=== PATIENT | male | born 1940 | race Caucasian/White ===

== ENCOUNTER 2017-05-28 18:12 | Inpatient (IN) | payer MEDICARE ==
[~2017-05-28] VITALS: Ht 175.3 cm; Wt 77.3 kg
[~2017-05-28 18:12] MED LIST: ALEVE ARTHRITI220 MG PO; ASPIRIN 81MG TA81 MG PO; FLOMAX 0.4MG C0.4 MG PO; OMEGA-31000 MG PO
[2017-05-28 18:18] VITALS: BP 117/61
[2017-05-28] MEDS ORDERED: METHOTREXATE 22.5 MG PO (18:27)
--- OUTSIDE RECORDS SUMMARY | 2017-05-28 18:27 | External Medical Summary Rpt ---
Author Author [facility] Organization [facility] Address Unknown Phone Unavailable Care Team Providers Care Customs Officer Name Role Phone MAGDI, (REF) PCP [phone] Encounter [facility] [id number] Date(s): 10/09/16 - 10/20/16 [facility] [address] [place] [address]- Discharge Disposition: OP Self Care or Home Attending Physician: KRIS NEVAREZ MD-SNU Admitting Physician: KRIS NEVAREZ MD-SNU Referring Physician: KRIS NEVAREZ MD-SNU Reason for Visit SPINAL STENOSIS, LUMBAR REGION Vital Signs Most recent 1 2 3 to oldest [Reference Range]: Temperature Oral Oral (10/19/16 Oral Source (10/20/16 3:00 AM) 10:00 PM) (10/19/16 7:00 PM) Temperature Fahrenheit Fahrenheit Fahrenheit Mode (10/20/16 3:00 AM) (10/19/16 10:00 (10/19/16 7:00 PM) PM) Temperature, 98.4 Deg F 97.8 Deg F 97.7 Deg F Fahrenheit (10/20/16 10:13 (10/20/16 6:45 AM) (10/20/16 3:00 AM) [96.8-99.7 AM) Deg F] Clinical 36.9 Deg C 36.6 Deg C 36.5 Deg C Temperature, (10/20/16 10:13 (10/20/16 6:45 AM) (10/20/16 3:00 AM) C AM) Pulse Method Pulse Oximetry (10/12/16 10:42 AM) Peripheral 59 bpm 73 bpm (10/19/16 68 bpm Pulse Rate *LOW* 10:00 PM) (10/19/16 7:00 PM) [60-100 bpm] (10/20/16 3:00 AM) Heart Rate 55 bpm 57 bpm 54 bpm Monitored *LOW*(10/20/16 *LOW* *LOW* [60-100 bpm] 10:13 AM) (10/20/16 6:45 AM) (10/19/16 4:51 PM) Respiratory 16 Breaths/Min 14 Breaths/Min 16 Breaths/Min Rate [14-20 (10/20/16 10:13 (10/20/16 6:45 AM) (10/19/16 10:41 Breaths/Min] AM) PM) Blood Arm, left upper Pressure (10/12/16 10:42 AM) Location Blood Non-Invasive BP Pressure Device (10/12/16 Source 10:42 AM) Blood Sitting Pressure (10/12/16 10:42 AM) Position Blood 97/44 mmHg 123/57 mmHg 113/47 mmHg Pressure (10/20/16 10:13 (10/20/16 6:45 AM) (10/20/16 3:00 AM) [90-140/60-9 AM) 0 mmHg] Mean 57 (10/20/16 10:13 72 59 Arterial AM) (10/20/16 6:45 AM) (10/20/16 3:00 AM) Pressure (MAP)-BMDI Oxygen 99 % 96 % 97 % Saturation (10/20/16 8:00 AM) (10/20/16 3:00 AM) (10/19/16 8:00 PM) [94-100 %] Oxygen Room air Room air Room air (10/19/16 Therapy Mode (10/20/16 8:00 AM) (10/19/16 8:00 PM) 12:00 PM) Oxygen Flow 2 Liter/Min 2 Liter/Min 2 Liter/Min Rate (10/19/16 11:30 (10/19/16 11:15 (10/19/16 11:10 AM) AM) AM) Height Measured (10/19/16 Measured Source 12:00 PM) (10/12/16 10:42 AM) Height Entry [place] (10/19/16 [place] Format 12:00 PM) (10/12/16 10:42 AM) Height/Lengt 69 Inch (10/19/16 69 Inch h [place] 12:00 PM) (10/12/16 10:42 AM) CLINICALHEIG 175.26 cm 175.26 cm HT (10/19/16 12:00 (10/12/16 10:42 AM) PM) Weight Standing scale Standing scale Source (10/19/16 12:00 (10/12/16 10:42 AM) PM) Weight Entry [place] (10/19/16 [place] Format 12:00 PM) (10/12/16 10:42 AM) Weight 169 lb (10/19/16 169 lb [place] lb 12:00 PM) (10/12/16 10:42 AM) CLINICALWEIG 76.82 kg (10/19/16 76.82 kg HT 12:00 PM) (10/12/16 10:42 AM) Body Surface 1.92 m2 (10/19/16 1.92 m2 Area (BSA) 12:00 PM) (10/12/16 10:42 AM) Body Mass 25 kg/m2 25 kg/m2 Index *HI*(10/19/16 *HI* [19.0-24.0 12:00 PM) (10/12/16 10:42 AM) kg/m2] [place] Body 70 kg (10/19/16 70 kg Weight 12:00 PM) (10/12/16 10:42 AM) Problem List Condition Effective Status Health Informant Dates Status Arthritis Active (rheumatoid) (Confirmed) Back Active pain(Confirm ed) CA - Cancer 11/22/15 Active of prostate (radiation seed implants)(Co nfirmed) Coronary Active artery disease (hx CABG x3)(Confirme d) Hard of Active hearing (mild)(Confi rmed) Immunosuppre Active ssion (RA)(Confirm ed) Numbness of Active fingers of both hands (tips of fingers)(Con firmed) Left leg Active numbness(Con firmed) Hernia, Active inguinal, right(Confir med) Spinal Active stenosis(Con firmed) Allergies, Adverse Reactions, Alerts No Known Allergies Medications acetaminophen-oxyCODONE (Percocet 5/325 oral tablet)1 Tab, Oral, Four Times A Day, As Needed, for pain, Refills: 0 aspirin 81 mg, Oral, Every Day, Refills: 0 docusate (docusate sodium 250 mg oral capsule)1 Cap, Oral, Two Times A Day, while taking percocet, to avoid constipation, Refills: 0 folic acid1 mg, Oral, Weekly, takes 5 pills weekly with Methotrexate, Refills: 0 oratnbaclrgg35 mg, Oral, Weekly, takes 10 pills of 2.5 mg weekly on Saturday, Refills: 0 naproxen (Aleve) 440 mg, Oral, Every Day, Refills: 0 tamsulosin (Flomax) 0.4 mg, Oral, Every Other Day, Refills: 0 Results GENERAL CHEMISTRY Most recent 1 to oldest [Reference Range]: Sodium Level 142 mmol/L [136-146 (10/12/16 10:50 AM) mmol/L] Potassium 4.1 mmol/L Level (10/12/16 10:50 AM) [3.5-5.1 mmol/L] Chloride 107 mmol/L Level (10/12/16 10:50 AM) [102-112 mmol/L] Carbon 26 mmol/L Dioxide (10/12/16 10:50 AM) Level [21-32 mmol/L] Anion Gap 13 [9-20] (10/12/16 10:50 AM) Glucose 87 mg/dL Level (10/12/16 10:50 AM) [74-106 mg/dL] Blood Urea 24 mg/dL Nitrogen *HI* [7-22 mg/dL] (10/12/16 10:50 AM) Creatinine 1.00 mg/dL Level (10/12/16 10:50 AM) [0.70-1.30 mg/dL] eGFR 89 mL/min/1.73m2 [>=60 (10/12/16 10:50 AM) mL/min/1.73m 2] eGFR 73 mL/min/1.73m2 NonAfrican (10/12/16 10:50 AM) [>=60 mL/min/1.73m 2] Bun/Creatini 24.0 ne *HI* [8.0-20.0] (10/12/16 10:50 AM) Calcium 8.7 mg/dL Level (10/12/16 10:50 AM) [8.5-10.1 mg/dL] HEMATOLOGY Most recent 1 to oldest [Reference Range]: WBC [4.2-9.1 4.8 K/uL K/uL] (10/12/16 10:50 AM) RBC 3.91 Million/uL [4.63-6.08 *LOW* Million/uL] (10/12/16 10:50 AM) Hgb 13.0 g/dL [13.7-17.5 *LOW* g/dL] (10/12/16 10:50 AM) Hct 36.8 % [40.1-51.0 *LOW* %] (10/12/16 10:50 AM) MCV 94.1 fL [79.0-94.8 (10/12/16 10:50 AM) fL] MCH 33.2 pg [25.6-32.2 *HI* pg] (10/12/16 10:50 AM) MCHC 35.3 Gram/dL [32.2-36.5 (10/12/16 10:50 AM) Gram/dL] Platelet 179 K/uL Count (10/12/16 10:50 AM) [163-369 K/uL] MPV 10.0 fL [9.4-12.4 (10/12/16 10:50 AM) fL] RDW 13.7 % [11.6-14.4 (10/12/16 10:50 AM) %] Slide Review No (10/12/16 10:50 AM) URINALYSIS Most recent 1 to oldest [Reference Range]: Urine Type U CleanCatch (10/12/16 11:43 AM) Urine Color Yellow *NA* (10/12/16 11:43 AM) Urine Clear Appearance (10/12/16 11:43 AM) Urine 1.006 Specific (10/12/16 11:43 AM) [place] [1.005-1.030 ] Urine pH 6.0 Dipstick (10/12/16 11:43 AM) [6.0-8.0] Urine Negative Leukocyte (10/12/16 11:43 AM) Esterase [Negative] Urine Negative Nitrite (10/12/16 11:43 AM) [Negative] Urine Negative Protein (10/12/16 11:43 AM) Dipstick [Negative] Urine Negative Glucose (10/12/16 11:43 AM) Dipstick [Negative] Urine Negative Ketones (10/12/16 11:43 AM) Dipstick [Negative] Urine 1.0 EU/dL Urobilinogen *ABN* Dipstick (10/12/16 11:43 AM) Urine Negative Bilirubin (10/12/16 11:43 AM) Dipstick [Negative] Urine Blood Negative Dipstick (10/12/16 11:43 AM) [Negative] Immunizations No data available for this section Procedures Procedure Date Related Body Site Diagnosis prostate cancer surgery 11/21 (radiation implant) CABG x3 2002 Social History Social History Response Type Smoking Status Never smoker; Smoking Frequency Within Last 30 Days None; Tobacco Use Within Last Twelve Months Snuff/Dip; Years of Tobacco Use 201 1goes through 2-3 tin/week Assessment and Plan Extracted from: Title: Neurosurgery Author: KRIS NEVAREZ Date: 10/20/16 Progress Note ADENIKE GONZALES SubjectiveDoing well this AM. Pain controlled.Vitals Signs (last 24 hrs) Last Charted Minimum MaximumTemp 97.8 (OCT 20 06:45)97.8 (OCT 20 06:45)97.6 (OCT 19 10:25)Mon HR 57 (OCT 20 06:45)52 (OCT 19 11:10)57 (OCT 19 10:25)Periph HR 59 (OCT 20 03:00)59 (OCT 20 03:00)73 (OCT 19 22:00)Resp Rate 14 (OCT 20 06:45)L 13 (OCT 19 10:30)20 (OCT 19 10:25)SBP 123 (OCT 20 06:45)113 (OCT 20 03:00)H 159 (OCT 19 16:51)DBP L 57 (OCT 20 06:45)L 47 (OCT 20 03:00)68 (OCT 19 10:25)MAP 72 (OCT 20 06:45)59 (OCT 20 03:00)98 (OCT 19 10:25)SpO2 99 (OCT 20 08:00)94 (OCT 19 11:10)100 (OCT 19 10:25)Physical ExamLE 11/09 motorLaboratory Values:No qualifying data available Radiology Results (Last 48 hours)[id number] -- 10/19/2016 06:32CR Fluoro in OR (10/19/2016 10:30) Result: FLUOROSCOPY IN THE OR, WITH IMAGESHISTORY: Back pain.FINDINGS: Fluoroscopy was provided by the radiology department for theclinical service. Fluoroscopic spot films were obtained.1 fluoroscopic image was obtained during lower lumbar spine surgery. Fluoroscopy exposure time: Less than one minutes.IMPRESSION: See above.Please see operative report for details. Images reviewed, interpreted, and dictated by Dr. Mukesh Acharya.Transcribed by Julito Arambula (Amarjit).I have personally viewed, interpreted and dictated the examination. Cece read and agree with the above final transcribed report.Assessments/p L345 LamiPlan- d/c home- f/u 2 weeks for jyoti Result: FLUOROSCOPY IN THE OR, WITH IMAGESHISTORY: Back pain.FINDINGS: Fluoroscopy was provided by the radiology department for theclinical service. Fluoroscopic spot films were obtained.1 fluo roscopic image was obtained during lower lumbar spine surgery. Fluoroscopy exposure time: Less than one minutes.IMPRESSION: See above.Please see operative report for details. Images reviewed , interpreted, and dictated by Dr. Mukesh Acharya.Transcribed by Julito Arambula (Amarjit).I have personally viewed, interpreted and dictated the examination. Cece read and agree with the above final transcribed report. Assessment s/p L345 Lami Plan - d/c home - f/u 2 weeks for jyoti Hospital Discharge Instructions Patient EducationFall Prevention and Home Safety, Tckq-tg-Ezyo Incision Care, Cdtl-kb-Alnl Laminectomy - Laminotomy - Discectomy, Care After Wound Infection, Jrfl-cc-Qjfj
--- OUTSIDE RECORDS SUMMARY | 2017-05-28 18:27 | External Medical Summary Rpt ---
Author Author [facility] Organization [facility] Address Unknown Phone Unavailable Care Team Providers Care Criminal Intelligence Analyst Name Role Phone MAGDI, (REF) PCP [phone] Encounter [facility] [address] [id number] Date(s): 10/09/16 - 10/20/16 [facility] [address] [place] [id number]- Discharge Disposition: OP Self Care or Home [...] 12:00 PM) (10/12/16 10:42 AM) Height Entry [place] (10/19/16 [place] Format 12:00 PM) (10/12/16 10:42 AM) Height/Lengt 69 Inch (10/19/16 69 Inch h [place] 12:00 PM) (10/12/16 10:42 AM) CLINICALHEIG 175.26 cm 175.26 cm HT (10/19/16 12:00 (10/12/16 10:42 AM) PM) Weight Standing scale Standing scale Source (10/19/16 12:00 (10/12/16 10:42 AM) PM) Weight Entry [place] (10/19/16 [place] Format 12:00 PM) (10/12/16 10:42 AM) Weight 169 lb (10/19/16 169 lb [place] lb 12:00 PM) (10/12/16 10:42 AM) CLINICALWEIG 76.82 kg (10/19/16 76.82 kg HT 12:00 PM) (10/12/16 10:42 AM) Body Surface 1.92 m2 (10/19/16 1.92 m2 Area (BSA) 12:00 PM) (10/12/16 10:42 AM) Body Mass 25 kg/m2 25 kg/m2 Index *HI*(10/19/16 *HI* [19.0-24.0 12:00 PM) (10/12/16 10:42 AM) kg/m2] [place] Body 70 kg (10/19/16 70 kg Weight [...] 5 pills weekly with Methotrexate, Refills: 0 [id number] mg, Oral, Weekly, takes 10 pills of [...] AM) Urine 1.006 Specific (10/12/16 11:43 AM) [place] [1.005-1.030 ] Urine pH 6.0 Dipstick (10/12/16 [...] qualifying data available Radiology Results (Last 48 hours)[id number] -- 10/19/2016 06:32CR Fluoro in OR (10/19/2016 [...] Instructions Patient EducationFall Prevention and Home Safety, Qmka-ys-Hmjd Incision Care, Pyjk-bd-Cgre Laminectomy - Laminotomy - Discectomy, Care After Wound Infection, Lowc-xc-Eccq
--- OUTSIDE RECORDS SUMMARY | 2017-05-28 18:28 | External Medical Summary Rpt | CCD ---
Author Author , ILEANA TEJEDA Address Unknown Phone [email or web address] Medical Immunization Name Date Rout CVX Reac Dose Comm Prov Is Faci e tion ent ider Refu lity Give sed n Infl 09- 135 999 Hist D203 No D203 uenz 3-20 oric 45 45 a, 16 al High Info rmat Dose ion - Sour ce Unsp ecif ied
--- OUTSIDE RECORDS SUMMARY | 2017-05-28 18:28 | External Medical Summary Rpt ---
Author Author [employer] [facility]zana, [employer] Organization [employer] Address Unknown Phone Unavailable
--- OUTSIDE RECORDS SUMMARY | 2017-05-28 18:28 | External Medical Summary Rpt | CCD ---
Author Author , ILEANA TEJEDA Address Unknown Phone [email or web address] Immunization Name Date Rout CVX Reac Dose Comm Prov Is Faci e tion ent ider Refu lity Give sed n Infl 09- 135 999 Hist D203 No D203 uenz 3-20 oric 45 45 a, 16 al High Info rmat Dose ion - Sour ce Unsp ecif ied
--- OUTSIDE RECORDS SUMMARY | 2017-05-28 18:28 | External Medical Summary Rpt ---
Author Author [facility] Organization [facility] Address Unknown Phone Unavailable Care Team Providers Care Incident Response Analyst Name Role Phone MAGDI, (REF) PCP [phone] Encounter [facility] Date(s): 11/05/16 - 11/08/16 [facility] [address] [place] [address]- Discharge Disposition: OP Self Care or Home Attending Physician: DARREL KEYS MD-SUR Admitting Physician: DARREL KEYS MD-SUR Referring Physician: DARREL KEYS MD-SUR Reason for Visit UNIL INGUINAL HERNIA, W/O OBST OR GANGR, NOT SPCF RECUR Vital Signs Most recent 1 2 3 4 to oldest [Reference Range]: Temperature Oral (11/08/16 Oral (11/07/16 Oral (11/07/16 Source 2:00 AM) 11:45 PM) 9:38 PM) Temperature Fahrenheit Fahrenheit Fahrenheit Mode (11/08/16 2:00 (11/07/16 (11/07/16 9:38 AM) 11:45 PM) PM) Temperature, 98.2 Deg F 98.1 Deg F 98.2 Deg F Fahrenheit (11/08/16 2:45 (11/07/16 (11/07/16 9:38 [96.8-99.7 AM) 11:45 PM) PM) Deg F] Clinical 36.8 Deg C 36.7 Deg C 36.8 Deg C Temperature, (11/08/16 2:45 (11/07/16 (11/07/16 9:38 C AM) 11:45 PM) PM) Pulse Method Pulse Pulse Oximetry Oximetry (11/07/16 1:39 (11/06/16 PM) 11:44 AM) Pulse Rhythm Regular (11/07/16 1:39 PM) Heart Rate, 57 bpm 54 bpm Apical *LOW*(11/07/16 *LOW*(11/07/16 [60-100 bpm] 11:00 PM) 9:38 PM) Peripheral 60 bpm 58 bpm Pulse Rate (11/07/16 1:39 *LOW*(11/06/16 [60-100 bpm] PM) 11:44 AM) Heart Rate 65 bpm 57 bpm 54 bpm Monitored (11/08/16 2:45 *LOW*(11/07/16 *LOW*(11/07/16 [60-100 bpm] AM) 11:00 PM) 9:38 PM) Respiratory 16 16 16 Rate [14-20 Breaths/Min Breaths/Min Breaths/Min Breaths/Min] (11/08/16 2:45 (11/07/16 (11/07/16 9:38 AM) 11:00 PM) PM) Blood Arm, right Arm, left Pressure upper upper Location (11/07/16 1:39 (11/06/16 PM) 11:44 AM) Blood Non-Invasive Non-Invasive Pressure BP Device BP Device Source (11/07/16 1:39 (11/06/16 PM) 11:44 AM) Blood Supine Sitting Pressure (11/07/16 1:39 (11/06/16 Position PM) 11:44 AM) Blood 123/58 mmHg 149/85 mmHg 149/66 mmHg Pressure (11/08/16 2:45 *HI*(11/07/16 *HI*(11/07/16 [90-140/60-9 AM) 11:45 PM) 9:38 PM) 0 mmHg] Mean 81 (11/08/16 102 (11/07/16 79 (11/07/16 Arterial 2:45 AM) 11:45 PM) 9:38 PM) Pressure (MAP)-BMDI Oxygen 96 % (11/08/16 96 % (11/07/16 96 % (11/07/16 Saturation 2:45 AM) 11:00 PM) 9:51 PM) [94-100 %] Oxygen Room air Room air Room air Therapy Mode (11/08/16 9:16 (11/08/16 8:00 (11/07/16 AM) AM) 11:00 PM) Oxygen Flow 8 Liter/Min 8 Liter/Min 3 Liter/Min 3 Liter/Min Rate (11/07/16 3:44 (11/07/16 3:44 (11/07/16 1:39 (11/07/16 1:39 PM) PM) PM) PM) Height Measured Measured Source (11/07/16 7:07 (11/06/16 AM) 11:44 AM) Height Entry [place] Format (11/07/16 7:07 (11/06/16 AM) 11:44 AM) Height/Lengt 67 Inch 67 Inch h [place] (11/07/16 7:07 (11/06/16 AM) 11:44 AM) CLINICALHEIG 170.18 cm 170.18 cm HT (11/07/16 7:07 (11/06/16 AM) 11:44 AM) Weight Standing Standing Source scale scale (11/07/16 7:07 (11/06/16 AM) 11:44 AM) Weight Entry [place] Format (11/07/16 7:07 (11/06/16 AM) 11:44 AM) Weight 164 lb 164 lb [place] lb (11/07/16 7:07 (11/06/16 AM) 11:44 AM) CLINICALWEIG 74.55 kg 74.55 kg HT (11/07/16 7:07 (11/06/16 AM) 11:44 AM) Body Surface 1.86 m2 1.86 m2 Area (BSA) (11/07/16 7:07 (11/06/16 AM) 11:44 AM) Body Mass 25.7 kg/m2 25.7 kg/m2 Index *HI*(11/07/16 *HI*(11/06/16 [19.0-24.0 7:07 AM) 11:44 AM) kg/m2] [place] Body 65 kg 65 kg Weight (11/07/16 7:07 (11/06/16 AM) 11:44 AM) Problem List Condition Effective Status Health Informant Dates Status Arthritis Active (rheumatoid) (Confirmed) Back pain Active (better since laminectomy on 10/19/2016)(C onfirmed) CA - Cancer 11/22/15 Active of prostate (radiation seed implants)(Co nfirmed) Coronary Active artery disease (hx CABG x3)(Confirme d) Hard of Active hearing (mild)(Confi rmed) Immunosuppre Active ssion (RA)(Confirm ed) Numbness of Active fingers of both hands (tips of fingers)(Con firmed) Left leg Active numbness(Con firmed) Leg Active weakness, bilateral (occasional, since back surgery)(Con firmed) Hernia, Active inguinal, right(Confir med) Spinal Resolved stenosis (resolved with surgery)(Con firmed) Allergies, Adverse Reactions, Alerts No Known Allergies Medications acetaminophen-hydrocodone ([place] 7.5 mg-325 mg oral tablet)1 Tab, Oral, Every 4 Hours, Not to exceed 3,000 mg Acetaminophen per day from ALL Sources, As Needed, as needed for pain, Refills: 0 aspirin 81 mg, Oral, Every Day, Refills: 0 folic acid1 mg, Oral, Weekly, takes 5 pills weekly with Methotrexate, Refills: 0 pvrrdjssfufx50 mg, Oral, Weekly, takes 10 pills of 2.5 mg weekly on Saturday, Refills: 0 naproxen (Aleve) 440 mg, Oral, Every Day, Refills: 0 tamsulosin (Flomax)0.4 mg, Oral, Every Other Day, takes at bedtime, Refills: 0 Results GENERAL CHEMISTRY Most recent 1 2 3 to oldest [Reference Range]: Sodium Level 137 mmol/L 136 mmol/L [136-146 (11/08/16 5:44 AM) (11/07/16 4:51 PM) mmol/L] Potassium 4.2 mmol/L 4.3 mmol/L Level (11/08/16 5:44 AM) (11/07/16 4:51 PM) [3.5-5.1 mmol/L] Chloride 102 mmol/L 102 mmol/L Level (11/08/16 5:44 AM) (11/07/16 4:51 PM) [102-112 mmol/L] Carbon 28 mmol/L 29 mmol/L Dioxide (11/08/16 5:44 AM) (11/07/16 4:51 PM) Level [21-32 mmol/L] Anion Gap 11 9 [9-20] (11/08/16 5:44 AM) (11/07/16 4:51 PM) Glucose 109 mg/dL 97 mg/dL Level *HI* (11/07/16 4:51 PM) [74-106 (11/08/16 5:44 AM) mg/dL] Blood Urea 13 mg/dL 16 mg/dL Nitrogen (5/4/17 5:44 AM) (11/07/16 4:51 PM) [7-22 mg/dL] Creatinine 0.90 mg/dL 0.90 mg/dL Level (11/08/16 5:44 AM) (11/07/16 4:51 PM) [0.70-1.30 mg/dL] eGFR 100 mL/min/1.73m2 100 mL/min/1.73m2 [>=60 (11/08/16 5:44 AM) (11/07/16 4:51 PM) mL/min/1.73m 2] eGFR 82 mL/min/1.73m2 82 mL/min/1.73m2 NonAfrican (11/08/16 5:44 AM) (11/07/16 4:51 PM) [>=60 mL/min/1.73m 2] Bun/Creatini 14.4 17.8 ne (11/08/16 5:44 AM) (11/07/16 4:51 PM) [8.0-20.0] Calcium 8.8 mg/dL 8.6 mg/dL Level (11/08/16 5:44 AM) (11/07/16 4:51 PM) [8.5-10.1 mg/dL] HEMATOLOGY Most recent 1 2 3 to oldest [Reference Range]: Hgb 11.5 g/dL 11.9 g/dL 11.2 g/dL [13.7-17.5 *LOW* *LOW*(11/07/16 *LOW* g/dL] (11/08/16 5:44 AM) 11:57 PM) (11/07/16 4:51 PM) Hct 33.2 % 35.5 % 33.5 % [40.1-51.0 *LOW* *LOW*(11/07/16 *LOW* %] (11/08/16 5:44 AM) 11:57 PM) (11/07/16 4:51 PM) Immunizations No data available for this section Procedures Procedure Date Related Body Site Diagnosis L3-5 laminectomy 10/19 Social History Social History Response Type Smoking Status Never smoker; Smoking Frequency Within Last 30 Days None; Tobacco Use Within Last Twelve Months Snuff/Dip; Years of Tobacco Use 201 1goes through 2-3 tin/week Assessment and Plan No data available for this section Hospital Discharge Instructions No data available for this section
--- OUTSIDE RECORDS SUMMARY | 2017-05-28 18:28 | External Medical Summary Rpt | CCD ---
Author Author [facility] Organization [facility] Address Unknown Phone Unavailable Purpose Continuity of Care Document - through 2016
--- OUTSIDE RECORDS SUMMARY | 2017-05-28 18:28 | External Medical Summary Rpt | CCD ---
Author Author [employer] Address Unknown Phone [email or web address] Purpose Continuity of Care Document - through 2016
--- OUTSIDE RECORDS SUMMARY | 2017-05-28 18:28 | External Medical Summary Rpt | CCD ---
Author Author [employer] Address Unknown Phone Purpose Continuity of Care Document - through 2016
--- OUTSIDE RECORDS SUMMARY | 2017-05-28 18:28 | External Medical Summary Rpt ---
Author Author [facility] Organization [facility] Address Unknown Phone Unavailable Care Team Providers Care Road Gang Supervisor Name Role Phone MAGDI, (REF) PCP [phone] Encounter [facility] Date(s): 11/05/16 - 11/08/16 [facility] [address] [place] [address]- Discharge Disposition: OP Self Care or Home [...] 7:07 (11/06/16 AM) 11:44 AM) Height Entry [place] Format (11/07/16 7:07 (11/06/16 AM) 11:44 AM) Height/Lengt 67 Inch 67 Inch h [place] (11/07/16 7:07 (11/06/16 AM) 11:44 AM) CLINICALHEIG 170.18 cm 170.18 cm HT (11/07/16 7:07 (11/06/16 AM) 11:44 AM) Weight Standing Standing Source scale scale (11/07/16 7:07 (11/06/16 AM) 11:44 AM) Weight Entry [place] Format (11/07/16 7:07 (11/06/16 AM) 11:44 AM) Weight 164 lb 164 lb [place] lb (11/07/16 7:07 (11/06/16 AM) 11:44 AM) CLINICALWEIG 74.55 kg 74.55 kg HT (11/07/16 7:07 (11/06/16 AM) 11:44 AM) Body Surface 1.86 m2 1.86 m2 Area (BSA) (11/07/16 7:07 (11/06/16 AM) 11:44 AM) Body Mass 25.7 kg/m2 25.7 kg/m2 Index *HI*(11/07/16 *HI*(11/06/16 [19.0-24.0 7:07 AM) 11:44 AM) kg/m2] [place] Body 65 kg 65 kg Weight (11/07/16 [...] Reactions, Alerts No Known Allergies Medications acetaminophen-hydrocodone ([place] 7.5 mg-325 mg oral tablet)1 Tab, Oral, Every 4 Hours, Not to exceed 3,000 mg Acetaminophen per day from ALL Sources, As Needed, as needed for pain, Refills: 0 aspirin 81 mg, Oral, Every Day, Refills: 0 folic acid1 mg, Oral, Weekly, takes 5 pills weekly with Methotrexate, Refills: 0 [id number] mg, Oral, Weekly, takes 10 pills of [...]
[2017-05-28 18:35] LABS: HEMOGLOBIN 13.7 g/dL (14.1-18.0); LYMPH # 0.5 K/mm3 (0.7-4.5); LYMPH % 3.8 % (10-50)
--- NOTE | 2017-05-28 18:43 | Emergency Room Report ---
History of Present Illness Time Seen by 1819 Presenting Problem in Triage Pt arrived:Walked Presenting Problem:RIGHT LOWER SIDE AND BACK PAIN SINCE YESTERDAY AT NOON.HURTS WORSE WITH INSPIRATION. 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 N Clinical Suspician of Infection? N Mental Status: 1 - Regular (Normal Baseline) Sepsis Risk:Low Sepsis Risk Have you (or family members/close friends) recently traveled outside the [place]? N If Yes, where/when: Have you had exposure to infectious disease within the past month? TB? Other? Specify: Positional right sided rib pain since yesterday. No SOB, no n/v, no syncope, no palpitations, no calf pain, no recent travel, no fever, no cough, no flu sx, no rash. Not taking anything for pain. Has hx CABG remotely. ALLERGIES Coded Allergies: No Known Allergies (07/21/15) Home Medications Reported Medications Methotrexate 2.5 MG PO WEEKLY #40 ASPIRIN (Aspirin) 81 MG PO DAILY Naproxen Sodium (Aleve Arthritis) 220 MG PO DAILY TAMSULOSIN HCL (Flomax 0.4MG) 0.4 MG PO QHS (Wild ROACH, Opal Dumont) History Medical History General CAD? Yes Angina: No [place]: No Hypertension? No Hyperlipidemia? No CHF? No DVT? No PE? No COPD? No Asthma? No Anemia? No GERD? No Gastric ulcers? No GI Bleed? No Hernia? No Thyroid Problems? No Hypothyroidism? No CVA? No Seizures? No Diabetes? No Renal Insuffiency? No End Stage Renal Disease? No UTI? No Stones? No BPH? No GB Disease: No Nephritic Syndrome? No Asplenia? No Hepatitis? No Sickle Cell Disease? No Arthritis? Yes Migraines? No Cataracts? No Glaucoma? No MRSA? No HIV? No TB? No Anxiety? No Depression? No Cancer? Yes Site: PROSTATE More? No Immunization Hx DT/Tetanus 1-4 Years Ago Surgical Hx Previous Surgery?Y OPEN HEART SURGERY BACK SURGERY Family History Family Hx Cancer Yes Social History Smoking Hx Smoker: Never Smoker Tobacco: No Alcohol Alcohol: No (Wild ROACH, Opal Dumont) Review of Systems All Other Systems Reviewed and Negative Musculoskeletal see HPI (Wild ROACH, Opal Dumont) Physical Exam Vital Signs Vital Signs Date Time Temp Pulse Resp B/P Pulse O2 O2 Flow FiO2 Ox Delivery Rate 05/28 1818 98.6 75 20 117/61 95 General Appearance normal appearance, WD/WN, no apparent distress Eye Exam - bilateral eye normal exam, bilateral eye PERRL, bilateral eye EOMI Neck normal inspection, non-tender, supple, full range of motion Respiratory Status Yes: trachea midline, chest symmetrical, tender on palpation. No: respiratory distress, non tender chest, use of accessory muscles, pain on inspiration, pain on expiration, productive cough, non productive cough. Lung Sounds bilateral: normal breath sounds, lungs clear. Cardiovascular normal exam, regular rate/rhythm, no peripheral edema, no gallop, no JVD, no murmur, no rub, normal peripheral pulses Gastrointestinal normal bowel sounds, normal exam, non tender, soft, no organomegaly, no pulsatile mass, no guarding, no rebound Back normal inspection, no CVA tenderness, no vertebral tenderness, bowel/ bladder continent, strt leg raising(L)-NML, strt leg raising(R)-NML, mild tenderness to palpation right ribs, reproduces pain; no visible rash no shingles. Extremities non-tender, normal range of motion, normal inspection, normal capillary refill, no calf tenderness, no pedal edema Strength 5 Upper Ext (L), 5 Upper Ext (R), 5 Lower Ext (L), 5 Lower Ext (R) Neurologic alert, normal exam, no motor/sensory deficits, oriented x 3 Glascow Coma Scale Glascow Coma Scale Response Value EYE response: 4 Spontaneously 4 MOTOR response: 6 OBEYS 6 VERBAL response: 5 Oriented & Converses 5 Total 15 Skin intact, normal color, warm/dry, no rash cons.w/shingles (Wild ROACH, Opal Dumont) Medical Decision Making LABS/Meds/Orders Pt receiving controlled substance in ED? No Results/Orders Laboratory Tests 05/28/171914: Urine Color ORANGE, Urine Appearance CLEAR, Urine pH 6.0, Ur Specific [place] 1.025, Urine Protein 1+ H, Urine Ketones 1+ H, Urine Blood TRACE-INTACT, Urine Nitrate POSITIVE H, Urine Bilirubin 1+ H, Urine Urobilinogen 1.0, Ur Leukocyte Esterase NEGATIVE, Urine RBC NONE, Urine WBC OCC, Ur Squamous Epith Cells 3-5, Urine Bacteria TRACE, Urine Mucus 4+, Urine Glucose NEGATIVE 05/28/171820: Lipase 78 05/28/171820: Sodium 135 L, Potassium 3.8, Chloride 99, Carbon Dioxide 27, BUN 18, Creatinine 0.9, Estimated Creat Clear 74, Estimated GFR (MDRD) 82, Glucose 104, Calcium 8.9 , Total Bilirubin 2.0 H, AST 22, ALT 30, Alkaline Phosphatase 89, Creatine Kinase 121, CK-MB (CK-2) Rel Index 1.8, CK and CKMB Interp 2.2, Troponin I 0.04, Total Protein 6.5, Albumin 3.5, Globulin 3.0, Albumin/Globulin Ratio 1.2, WBC 13.4 H, RBC 3.97 L, Hgb 13.7 L, Hct 40.1 L, MCV 101.1 H, RDW 14.5, Plt Count 168, MPV 7.7, Gran % 92.2 H, Gran # 12.4 H, Total Counted 100, Lymphocytes % 3.8 L, Monocytes % 3.6, Eosinophils % 0.3, Basophils % 0.1, Neutrophils 88 H, Band Neutrophils 2, Lymphocytes (Manual) 2 L, Lymphocytes # 0.5 L, Monocytes (Manual) 8, Monocytes # 0.5, Eosinophils # 0.0, Basophils # 0.0, Platelet Estimate NORMAL, PUBS MCHC 34.1, MCH 34.5 H Current Medication Orders Sig/Ildefonso Start time Last Medication Dose Route Stop Time Status Admin Iopamidol 75 ML ONCE ONE 05/28 2000 UNV 05/28 IV 05/28 Sodium Chloride 10 ML ONCE ONE 05/28 2000 UNV 05/28 IV 05/28 Sodium Chloride 10 ML PRN PRN 05/28 183 AC IV 05/29 1828 Orders Procedure Date/time Status DIET-NOTHING BY MOUTH 05/[address] ABD & PELVIS W/ CONTRAST 05/[address] ABD/PELVIS REQ 05/28 1921 Complete CULTURE, URINE 05/28 1915 Active URINALYSIS/COMPLETE 05/28 1856 Complete LIPASE 05/28 1856 Complete ELECTROCARDIOGRAM REQUEST 05/28 1829 Active IV SALINE LOCK 05/28 1829 Active CBC WITH AUTO DIFF 05/28 1829 Complete CARDIAC ENZYMES 05/28 1829 Complete CHEM 12 PROFILE 05/28 1829 Complete DIFFERENTIAL-WBC 05/28 1821 Complete 12 LEAD EKG-ELOISE (INITIAL) 05/28 UNK Active CM/EKG CM/EKG EKG rate, NSR, rhythm, no ectopy, normal QRS, normal CA, normal EKG (NSR Q waves inferiorly noprior) XRAY/CT/US XRAY/CT/US XRAY chest XR interpretation by reviewed by me Xray Results normal/NAD, no infiltrates, normal lung inflation divya, borderline CM, slightly elevated R hemidiaphragm, sternotomy wires, neg acute (Opal Rome MD) XRAY/CT/US XRAY/CT/US 2 CT abdomen, pelvis CT interpretation by discussed w/radiologist Time results known: 2031 CT Results abnormal (acute appendicitis) (Young Carter MD) Departure Departure Time of Disposition 1999 Disposition Still a Patient Condition STABLE ED Critical Care Critical Care No (Opal Rome MD) Departure Clinical Impression Primary Impression: Appendicitis, acute Qualifiers: Acute appendicitis type: unspecified acute appendicitis type Qualified Code: K35.80 - Unspecified acute appendicitis Referrals Sahil ROACH,A.C. (Family) discussed with dr stone (Young Carter MD) at 195 at 2032
[2017-05-28 19:15] LABS: NEUTROPHILS 88 % (42-76)
[2017-05-28 19:18] LABS: URINE BLOOD TRACE-INTACT (NEG)
[2017-05-28 19:20] LABS: URINE BILIRUBIN - DIPSTICK 1+ (NEG)
--- NOTE | 2017-05-28 19:58 | RADIOLOGY REPORT PS360 ---
CHEST(2 VIEWS-NOT PORTABLE) HISTORY: RIGHT RIB PAIN, CARDIAC HX ORDERING PHYSICIAN: Opal Rome MD PATIENT AGE: 76 years COMPARISON: None available FINDINGS: There is mild cardiomegaly without failure. There has been a prior median sternotomy. No lobar consolidation or collapse. 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 IMPRESSION: 1. Prior median sternotomy with mild cardiomegaly. 2. Severe bilateral subacromial stenosis consistent with rotator cuff tear
--- OUTSIDE RECORDS SUMMARY | 2017-05-28 21:54 | External Medical Summary Rpt | CCD ---
Author Author , ILEANA TEJEDA Address Unknown Phone [email or web address] Immunization Name Date Rout CVX Reac Dose Comm Prov Is Faci e tion ent ider Refu lity Give sed n Infl 09- 135 999 Hist D203 No D203 uenz 3-20 oric 45 45 a, 16 al High Info rmat Dose ion - Sour ce Unsp ecif ied
--- OUTSIDE RECORDS SUMMARY | 2017-05-28 21:54 | External Medical Summary Rpt | CCD ---
Author Author , ILEANA TEEJDA Address Unknown Phone [email or web address] Immunization Name Date Rout CVX Reac Dose Comm Prov Is Faci e tion ent ider Refu lity Give sed n Infl 09- 135 999 Hist D203 No D203 uenz 3-20 oric 45 45 a, 16 al High Info rmat Dose ion - Sour ce Unsp ecif ied
--- OUTSIDE RECORDS SUMMARY | 2017-05-28 21:54 | External Medical Summary Rpt | CCD ---
Author Author , ILEANA Organization ILEANA Address Unknown Phone .[employer] Purpose Continuity of Care Document - 05-28-2017 through 2016 Results Labs Lab Lab Date Result Refere Interp Status Commen Order Detail nces retati t Range on Urinalysis with microscopy (05-28-2017 19:15) Urine CLEAR CLEAR complet appeara 017 CLEAR L ed nce 19:15 determi nation Bacteri TRACE O complet a 017 TRACE L ed detecti 19:15 on in urine sedimen t by Urine 1+ 1+ L NEG complet total 017 ed bilirub 19:15 in detecti on by test Comment: ICTOTEST = NEGATIVE Urine TRACE-I NEG complet blood 017 NTACT ed detecti 19:15 TRACE-I on NTACT L Urine ORANGE YELLOW complet color 017 ORANGE ed 19:15 L Glucose = NEG complet ur 017 NEGATIV ed test 19:15 E strip Urine 1+ 1+ L NEG complet ketones 017 mg/dL ed 19:15 detecti on by automat ed sammie Mucus NEGATIV NEG complet detecti 017 E ed on in 19:15 NEGATIV urine E L sedimen t by lig Mucus 4+ 4+ L NONE complet detecti 017 ed on in 19:15 urine sedimen t by lig Urine POSITIV NEG complet nitrite 017 E ed 19:15 POSITIV detecti E L on by test strip Urine = 6.0 5.0-8.5 complet pH 017 ed 19:15 Urine 1 + NEG complet protein 017 mg/dL ed 19:15 measure ment by automat ed t Erythro NONE 0 complet cytes 017 NONE L ed detecti 19:15 rbc/hpf on in urine sedimen t Urine 11-21-2 = 1.025 1.005-1 complet specifi 017 .030 ed c 19:15 gravity measure ment [place] 05-28-2 3-5 3-5 OCC complet s 017 L ed epithel 19:15 #/hpf ial cells detecti on in u Urine 2 1.0 1.0 NEG complet urobili 017 L ed nogen 19:15 E.U./dL detecti on by test str Urine = OCC O complet leukocy 017 wbc/hpf ed sammie 19:15 count (number /volume ) Urinalysis dipstick W Reflex Microscopic panel in Urine (05-28-2017 19:15) Bacteri TRACE O complet a 017 ed [Presen 19:15 ce] in Urine sedimen t by Light microsc opy Mucus 4+ NONE complet [Presen 017 ed ce] in 19:15 Urine sedimen t by Light microsc opy Erythro 05-28-2 NONE 0 complet cytes 017 ed [Presen 19:15 ce] in Urine sedimen t by Light microsc opy Epithel 05-28-2 3-5 OCC complet ial 017 ed cells.s 19:15 quamous [Presen ce] in Urine sedimen t by Microsc opy high power field Urinalysis dipstick W Reflex Microscopic panel in Urine (05-28-2017 19:15) Appeara CLEAR CLEAR complet nce of 017 ed Urine 19:15 Bilirub 2 1+ NEG Abnorma complet in 017 l ed [Presen 19:15 ce] in Urine by Test strip Erythro TRACE-I NEG complet cytes 017 NTACT ed [Presen 19:15 ce] in Urine Color ORANGE YELLOW complet of 017 ed Urine 19:15 Ketones 05-28-2 1+ NEG Abnorma complet 017 l ed [Presen 19:15 ce] in Urine by Automat ed test strip Mucus NEGATIV NEG complet [Presen 017 E ed ce] in 19:15 Urine sedimen t by Light microsc opy Nitrite 2 POSITIV NEG Abnorma complet 017 E l ed [Presen 19:15 ce] in Urine by Test strip Urobili 1.0 NEG complet nogen 017 ed [Presen 19:15 ce] in Urine by Test strip Cardiac enzymes (05-28-2017 18:21) Serum 05-28-2 = 1.8 0-4.0 complet or 017 U/L ed plasma 18:21 creatin e kinase MB (CK-M Serum = 2.2 0.0-3.6 complet or 017 ng/mL ed plasma 18:21 creatin e kinase MB measu Serum = 121 39-308 complet or 017 U/L ed plasma 18:21 creatin e kinase measure m Serum = 0.04 0.00-0. complet or 017 ng/mL 06 ed plasma 18:21 troponi n i.cardi ac measu Comprehensive metabolic panel (05-28-2017 18:21) Serum = 1.2 1.1-1.8 complet or 017 ed plasma 18:21 albumin /globul in mass ra Serum = 3.5 3.4-5.0 complet or 017 gm/dL ed plasma 18:21 albumin measure ment (mas Serum = 89 46-116 complet or 017 U/L ed plasma 18:21 alkalin e phospha tase roxanna Serum = 2.0 0.2-1.0 complet or 017 mg/dL ed plasma 18:21 total bilirub in measure m Serum = 0.9 0.70-1. complet or 017 mg/dL 30 ed plasma 18:21 creatin ine measure ment ( Serum = 18 7-18 complet or 017 mg/dL ed plasma 18:21 urea nitroge n measure men Serum = 8.9 8.5-10. complet or 017 mg/dL 1 ed plasma 18:21 calcium measure ment (mas Serum = 99 98-107 complet or 017 mmoL/L ed plasma 18:21 chlorid e measure ment (mo Carbon = 27 21.0-32 complet dioxide 017 mmoL/L .0 ed 18:21 measure ment Estimat = 74 50-200 complet ion of 017 ML/MIN ed creatin 18:21 ine renal clearan ce Estimat = 82 >60 complet ed 017 ML/MIN ed glomeru 18:21 lar filtrat ion rate (GF Comment: REFERENCE RANGE: >60 ML/MIN/1.73 SQUARE METERS Comment: If this patient is -[place], then multiply the Comment: result by 1.210. Serum = 3.0 1.3-3.2 complet globuli 017 gm/dL ed n 18:21 measure ment (mass/v olume) Serum = 104 74-106 complet or 017 mg/dL ed plasma 18:21 glucose measure ment (mas Serum = 3.8 3.5-5.1 complet potassi 017 mmoL/L ed um 18:21 measure ment Serum = 135 136-145 complet sodium 017 mmoL/L ed measure 18:21 ment Serum = 22 15-37 complet or 017 U/L ed plasma 18:21 asparta te aminotr ansfera ALT = 30 12-78 complet (SGPT) 017 U/L ed ser/lidia 18:21 s Protein = 6.5 6.4-8.2 complet total 017 gm/dL ed ser/lidia 18:21 s Lipase measurement (05-28-2017 18:21) Lipase = 78 73-393 complet measure 017 U/L ed ment 18:21 CBC w auto diff (05-28-2017 18:21) Automat = 0.0 0-0.2 complet ed 017 K/MM3 ed blood 18:21 basophi l count (count/ vo Baso % = 0.1 % 0.1-2.0 complet 017 ed 18:21 Automat = 0.0 0.0-0.4 complet ed 017 K/mm3 ed blood 18:21 eosinop hil count Automat = 0.3 % 0.1-12. complet ed 017 0 ed blood 18:21 eosinop hils/10 0 leukocy t Blood = 12.4 1.3-8.0 complet granulo 017 K/mm3 ed cytes 18:21 automat ed count (numb Granulo = 92.2 37.0-80 complet cyte 017 % .0 ed percent 18:21 age Blood = 40.1 42.0-52 complet hematoc 017 % .0 ed rit 18:21 (volume fractio n) Blood = 13.7 14.1-18 complet hemoglo 017 g/dL .0 ed bin 18:21 measure ment (mass/v olum Absolut = 0.5 0.7-4.5 complet e 017 K/mm3 ed lymphoc 18:21 yte count Lymphoc = 3.8 % 10-50 complet yte 017 ed count, 18:21 blood, automat ed Mean = 34.5 27-31.2 complet corpusc 017 pg ed ular 18:21 hemoglo bin (MCH) determ Automat = 34.1 31.8-35 complet ed 017 g/dl .4 ed erythro 18:21 cyte mean corpusc ular h Automat = 101.1 82.2-97 complet ed 017 fl .8 ed erythro 18:21 cyte mean corpusc ular v Absolut = 0.5 0.1-1.0 complet e 017 K/mm3 ed monocyt 18:21 e count [place] % = 3.6 % 1.7-9.3 complet 017 ed 18:21 Automat = 7.7 7.4-10. complet ed 017 fl 4 ed blood 18:21 platele t mean volume roxanna Blood = 168 142-424 complet platele 017 K/mm3 ed t count 18:21 Red = 3.97 4.6-6.2 complet blood 017 M/mm3 ed cell 18:21 count Automat = 14.5 11.5-17 complet ed 017 % .5 ed erythro 18:21 cyte distrib ution width Blood = 13.4 4.8-10. complet leukocy 017 K/MM3 8 ed sammie 18:21 count (number /volume ) Differential panel, method unspecified - (05-28-2017 18:21) Automat = 2 % 0-8 complet ed 017 ed blood 18:21 band neutrop hil percent a LYMPH 05-28-2 2 % 10-50 complet 017 ed 18:21 Monocyt 05-28-2 = 8 % 2-9 complet e % 017 ed 18:21 Platele 05-28-2 NORMAL complet t 017 NORMAL ed estimat 18:21 L e Neutrop 05-28-2 = 88 % 42-76 complet hil 017 ed count 18:21 Blood 2 = 100 complet total 017 #CELLS ed cell 18:21 count Differential panel, method unspecified - (05-28-2017 18:21) LYMPH 21-2 2 % 10% - Low complet 017 50% ed 18:21 Platele 05-28-2 NORMAL complet ts 017 ed [Presen 18:21 ce] in Blood by Light microsc opy
--- OUTSIDE RECORDS SUMMARY | 2017-05-28 21:54 | External Medical Summary Rpt | CCD ---
Author Author , ILEANA Organization ILEANA Address Unknown Phone [email or web address] Purpose Continuity of Care Document - 05-28-2017 [...] SQUARE METERS Comment: If this patient is -[place], then multiply the Comment: result by 1.210. [...] 017 K/mm3 ed monocyt 18:21 e count [place] % = 3.6 % 1.7-9.3 complet 017 [...]
--- OUTSIDE RECORDS SUMMARY | 2017-05-28 21:55 | External Medical Summary Rpt ---
Author Author [employer] [facility]zana, [employer] Organization [employer] Address Unknown Phone Unavailable Results Urinalysis dipstick W Reflex Microscopic panel in Urine Observa Value Referen Units Interpr Notes Date tion ce etation Range Appeara CLEAR CLEAR No No No May 28 nce of informa informa informa 2017 Urine tion in tion in tion in 7:15 PM source source source data data data Bacteri TRACE O No No No May 28 a informa informa informa 2016 [Presen tion in tion in tion in 7:15 PM ce] in source source source Urine data data data sedimen t by Light microsc opy Bilirub 1+ NEG No Abnorma ICTOTES May 28 in informa l T = 2016 [Presen tion in NEGATIV 7:15 PM ce] in source E Urine data by Test strip Erythro TRACE-I NEG No No No May 28 cytes NTACT informa informa informa 2016 [Presen tion in tion in tion in 7:15 PM ce] in source source source Urine data data data Color ORANGE YELLOW No No No May 28 of informa informa informa 2016 Urine tion in tion in tion in 7:15 PM source source source data data data Glucose NEG No No No May 28 [Mass/vol informati informati informati 2016 7:15 ume] in on in on in on in PM Urine by source source source Test data data data strip Ketones 1+ NEG mg/dL Abnorma No May 28 l informa 2016 [Presen tion in 7:15 PM ce] in source Urine data by Automat ed test strip Mucus NEGATIV NEG No No No May 28 [Presen E informa informa informa 2016 ce] in tion in tion in tion in 7:15 PM Urine source source source sedimen data data data t by Light microsc opy Mucus 4+ NONE No No No May 28 [Presen informa informa informa 2016 ce] in tion in tion in tion in 7:15 PM Urine source source source sedimen data data data t by Light microsc opy Nitrite POSITIV NEG No Abnorma No May 28 E informa l informa 2016 [Presen tion in tion in 7:15 PM ce] in source source Urine data data by Test strip pH of 5.0 - 8.5 No Normal No May 28 Urine informati informati 2017 7:15 on in on in PM source source data data Protein NEG mg/dL High No May 28 [Mass/vol informati 2017 7:15 ume] in on in PM Urine by source Automated data test strip Erythro NONE 0 rbc/hpf No No May 28 cytes informa informa 2016 [Presen tion in tion in 7:15 PM ce] in source source Urine data data sedimen t by Light microsc opy Specific 1.005 - No Normal No May 28 gravity 1.030 informati informati 2017 7:15 of Urine on in on in PM source source data data Epithel 3-5 OCC #/hpf No No May 28 ial informa informa 2017 cells.s tion in tion in 7:15 PM quamous source source data data [Presen ce] in Urine sedimen t by Microsc opy high power field Urobili 1.0 NEG E.U./dL No No May 28 nogen informa informa 2016 [Presen tion in tion in 7:15 PM ce] in source source Urine data data by Test strip Leukocyte O wbc/hpf No No May 28 s informati informati 2017 7:15 [#/volume on in on in PM ] in source source Urine data data Urinalysis dipstick W Reflex Microscopic panel in Urine Observa Value Referen Units Interpr Notes Date tion ce etation Range Appeara CLEAR CLEAR No No No May 28 nce of informa informa informa 2017 Urine tion in tion in tion in 7:15 PM source source source data data data Bilirub 1+ NEG No Abnorma ICTOTES May 28 in informa l T = 2016 [Presen tion in NEGATIV 7:15 PM ce] in source E Urine data by Test strip Erythro TRACE-I NEG No No No May 28 cytes NTACT informa informa informa 2016 [Presen tion in tion in tion in 7:15 PM ce] in source source source Urine data data data Color ORANGE YELLOW No No No May 28 of informa informa informa 2016 Urine tion in tion in tion in 7:15 PM source source source data data data Glucose NEG No No No May 28 [Mass/vol informati informati informati 2016 7:15 ume] in on in on in on in PM Urine by source source source Test data data data strip Ketones 1+ NEG mg/dL Abnorma No May 28 l informa 2016 [Presen tion in 7:15 PM ce] in source Urine data by Automat ed test strip Mucus NEGATIV NEG No No No May 28 [Presen E informa informa informa 2016 ce] in tion in tion in tion in 7:15 PM Urine source source source sedimen data data data t by Light microsc opy Nitrite POSITIV NEG No Abnorma No May 28 E informa l informa 2016 [Presen tion in tion in 7:15 PM ce] in source source Urine data data by Test strip pH of 5.0 - 8.5 No Normal No May 28 Urine informati informati 2016 7:15 on in on in PM source source data data Protein NEG mg/dL High No May 28 [Mass/vol informati 2016 7:15 ume] in on in PM Urine by source Automated data test strip Specific 1.005 - No Normal No May 28 gravity 1.030 informati informati 2016 7:15 of Urine on in on in PM source source data data Urobili 1.0 NEG E.U./dL No No May 28 nogen informa informa 2016 [Presen tion in tion in 7:15 PM ce] in source source Urine data data by Test strip CBC W Auto Differential panel in Blood Observa Value Referen Units Interpr Notes Date tion ce etation Range Basophils 0 - 0.2 K/MM3 Normal No May 28 informati 2016 6:21 [#/volume on in PM ] in source Blood by data Automated count Basophils 0.1 - 2.0 % Normal No May 28 /100 informati 2017 6:21 leukocyte on in PM s in source Blood by data Automated count Eosinophi 0.0 - 0.4 K/mm3 Normal No May 28 ls informati 2016 6:21 [#/volume on in PM ] in source Blood by data Automated count Eosinophi 0.1 - % Normal No May 28 ls/100 12.0 informati 2017 6:21 leukocyte on in PM s in source Blood by data Automated count Granulocy 1.3 - 8.0 K/mm3 High No May 28 sammie informati 2017 6:21 [#/volume on in PM ] in source Blood by data Automated count Granulocy 37.0 - % High No May 28 sammie/100 80.0 informati 2017 6:21 leukocyte on in PM s in source Blood by data Automated count Hematocri 42.0 - % Low May 28 t [Volume 52.0 informati 2017 6:21 on in PM Fraction] source of Blood data Hemoglobi 14.1 - g/dL Low No May 28 n 18.0 informati 2017 6:21 [Mass/vol on in PM ume] in source Blood data Lymphocyt 0.7 - 4.5 K/mm3 Low No May 28 es informati 2017 6:21 [#/volume on in PM ] in source Unspecifi data ed specimen by Automated count Lymphocyt 10 - 50 % Low No May 28 es informati 2016 6:21 [#/volume on in PM ] in source Unspecifi data ed specimen by Automated count Erythrocy 27 - 31.2 pg High No May 28 te mean informati 2017 6:21 corpuscul on in PM ar source hemoglobi data n [Entitic mass] Erythrocy 31.8 - g/dl Normal May 28 te mean 35.4 informati 2017 6:21 corpuscul on in PM ar source hemoglobi data n concentra tion [Mass/vol ume] by Automated count Erythrocy 82.2 - fl High May 28 te mean 97.8 informati 2016 6:21 corpuscul on in PM ar volume source [Entitic data volume] by Automated count Monocytes 0.1 - 1.0 K/mm3 Normal No May 28 informati 2017 6:21 [#/volume on in PM ] in source Blood by data Automated count Monocytes 1.7 - 9.3 % Normal No May 28 / informati 2017 6:21 leukocyte on in PM s in source Blood by data Automated count Platelet 7.4 - fl Normal No May 28 mean 10.4 informati 2017 6:21 volume on in PM [Entitic source volume] data in Blood by Automated count Platelets 142 - 424 K/mm3 Normal No May 28 informati 2017 6:21 [#/volume on in PM ] in source Blood data Erythrocy 4.6 - 6.2 M/mm3 Low No May 28 sammie informati 2016 6:21 [#/volume on in PM ] in source Amniotic data fluid Erythrocy 11.5 - % Normal No May 28 te 17.5 informati 2016 6:21 distribut on in PM ion width source [Entitic data volume] by Automated count Leukocyte 4.8 - K/MM3 High No May 28 s 10.8 informati 2016 6:21 [#/volume on in PM ] in source Blood data Differential panel, method unspecified - Observa Value Referen Units Interpr Notes Date ti ce etation Range Neutrophi 0 - 8 % Normal No May 28 ls.band informati 2016 6:21 form/100 on in PM leukocyte source s in data Blood by Automated count LYMPH 2 10 - 50 % Low No May 28 inform2016 tion in 6:21 PM source data Monocytes 2 - 9 % Normal No May 28 /100 informati 2016 6:21 leukocyte on in PM s in source Blood by data Automated count Platele NORMAL No No No No May 28 ts informa informa informa informa 2016 [Presen tion in tion in tion in tion in 6:21 PM ce] in source source source source Blood data data data data by Light microsc opy Neutrophi 42 - 76 % High No May 28 ls informati 2016 6:21 [#/volume on in PM ] in source Blood by data Automated count Cells No #CELLS No No May 28 Counted informati informati informati 2016 6:21 Total [#] on in on in on in PM in Blood source source source data data data Lipase [Enzymatic activity/volume] in Serum or Plasma Observa Value Referen Units Interpr Notes Date tion ce etation Range Lipase 73 - 393 U/L Normal No May 28 [Enzymati informati 2016 6:21 c on in PM activity/ source volume] data in Serum or Plasma Cardiac enzymes Observa Value Referen Units Interpr Notes Date ti ce etation Range Creatine 0 - 4.0 U/L Normal No May 28 kinase.MB informati 2016 6:21 /Creatine on in PM source kinase.to data homer [Ratio] in Serum or Plasma Creatine 0.0 - 3.6 ng/mL Normal No May 28 kinase.MB informati 2016 6:21 on in PM [Mass/vol source ume] in data Serum or Plasma Creatine 39 - 308 U/L Normal No May 28 kinase informati 2017 6:21 [Enzymati on in PM c source activity/ data volume] in Serum or Plasma Troponin 0.00 - ng/mL Normal No May 28 I.cardiac 0.06 informati 2017 6:21 on in PM [Mass/vol source ume] in data Serum or Plasma Comprehensive metabolic 2000 panel in Serum or Plasma Observa Value Referen Units Interpr Notes Date tion ce etation Range Albumin/G 1.1 - 1.8 No Normal No May 28 lobulin informati informati 2016 6:21 [Mass on in on in PM ratio] in source source Serum or data data Plasma Albumin 3.4 - 5.0 gm/dL Normal No May 28 [Mass/vol informati 2016 6:21 ume] in on in PM Serum or source Plasma data Alkaline 46 - 116 U/L Normal No May 28 phosphata informati 2016 6:21 se on in PM [Enzymati source c data activity/ volume] in Serum or Plasma Bilirubin 0.2 - 1.0 mg/dL High No May 28 .total informati 2016 6:21 [Mass/vol on in PM ume] in source Serum or data Plasma Urea 7 - 18 mg/dL Normal No May 28 nitrogen informati 2016 6:21 [Mass/vol on in PM ume] in source Serum or data Plasma Calcium 8.5 - mg/dL Normal No May 28 [Mass/vol 10.1 informati 2016 6:21 ume] in on in PM Serum or source Plasma data Chloride 98 - 107 mmoL/L Normal No May 28 [Moles/vo informati 2016 6:21 lume] in on in PM Serum or source Plasma data Carbon 21.0 - mmoL/L Normal No May 28 dioxide, 32.0 informati 2017 6:21 total on in PM [Moles/vo source lume] in data Serum or Plasma Creatinin 0.70 - mg/dL Normal No May 28 e 1.30 informati 2017 6:21 [Mass/vol on in PM ume] in source Serum or data Plasma Creatinin 50 - 200 ML/MIN Normal No May 28 e renal informati 2017 6:21 clearance on in PM source predicted data by Cockcroft -Gault formula Estimated >60 ML/MIN No REFERENCE May 28 informati RANGE: 2017 6:21 glomerula on in >60 PM r source ML/MIN/1. filtratio data 73 SQUARE n rate METERSIf (GF this patient is -A merican, then multiply theresult by 1.210. Globulin 1.3 - 3.2 gm/dL Normal No May 28 [Mass/vol informati 2016 6:21 ume] in on in PM Serum source data Glucose 74 - 106 mg/dL Normal No May 28 [Mass/vol informati 2016 6:21 ume] in on in PM Serum or source Plasma data Potassium 3.5 - 5.1 mmoL/L Normal No May 28 informati 2016 6:21 [Moles/vo on in PM lume] in source Serum or data Plasma Sodium 136 - 145 mmoL/L Low No May 28 [Moles/vo informati 2016 6:21 lume] in on in PM Serum or source Plasma data Aspartate 15 - 37 U/L Normal No May 28 informati 2016 6:21 aminotran on in PM sferase source [Enzymati data c activity/ volume] in Serum or Plasma Alanine 12 - 78 U/L Normal No May 28 aminotran informati 2016 6:21 sferase on in PM [Enzymati source c data activity/ volume] in Serum or Plasma Protein 6.4 - 8.2 gm/dL Normal May 28 [Mass/vol informati 2016 6:21 ume] in on in PM Serum or source Plasma data
--- NOTE | 2017-05-28 22:55 | Operative Note ---
Surgeon/Diagnoses Surgeon/Medical Dermatologist(s) Date of procedure: 05/28/17 Surgeon: MD Colby Urbano Diagnoses Pre-op diagnosis: Appendicitis Post-op diagnosis Necrotic/perforated appendicitis Procedure Procedure Procedure: Laparoscopic appendectomy Indications: HORTENSIA VILLATORO is a 76 year-old Male with a history of right-sided abdominal pain and radiographic evidence of severe appendicitis. Findings: Severe appendicitis with necrosis and perforation Procedure Description: After informed consent was obtained, the patient was taken to the operating room and placed in the supine position. General anesthesia was induced and his abdomen was prepped and draped in a sterile fashion. After infiltration with local anesthetic and infraumbilical incision was made. A Veress needle was placed in position. The abdomen was insufflated. A 12 mm optical trocar was placed in position. Under direct visualization a 5 mm trocar was placed in the suprapubic position and an additional 5 mm trocar was placed in the LEFT lower quadrant. Evaluation of the RIGHT lower quadrant and midabdomen revealed severe inflammation and separative changes in multiple areas. The appendix was carefully elevated. The entire appendix was essentially necrotic. The stump was viable. Careful dissection was utilized to free the appendix from surrounding tissue. A combination of blunt dissection and harmonic charlie was utilized. Once the appendix was elevated the degree of necrosis is more apparent and the tissue essentially disintegrated into 2 separate pieces along the midpoint. The stump was carefully elevated. Fortunately, the transition from cecum to appendix appeared viable and a GLEN stapler was utilized to take the appendix at this site. The appendix was then placed in a retrieval bag and removed through the infraumbilical trocar site. 2 small stool specimens were then removed by way of stone forceps. The RIGHT lower quadrant was thoroughly irrigated. No sign of injury or active bleeding was seen. The fascia at the infraumbilical trocar site was reapproximated utilizing the brad-close device. Pneumoperitoneum was released as the remaining trocars were removed. All wounds were irrigated and skin was closed with 4-0 Monocryl. Dressings were applied. The patient was transferred to recovery in stable condition. EBL (ml): 10 Anesthesia: GETA Complications: No immediate Specimens: Appendix Disposition Disposition: Stable to recovery from where he will be transferred to the floor. at [id number]
--- NOTE | 2017-05-28 22:58 | Anesthesia Record ---
Anesthesia Record Part I Total IV fluids: 1500 EBL (ml): 10 Urine Output: 200 B/P: 101/52 % SaO2: 95 Pulse: 71 Resps: 16 Temp: 98.2 Patient is: Drowsy, Stable Stable to PACU at: 2250 at 2257
--- NOTE | 2017-05-28 22:58 | Anesthesia Record ---
Anesthesia Record Part II Discharge time: 2319 Destination: Second Floor PACU nurse assessment review? Yes Patient is: Stable Anesthesia complications? No at 4883
[2017-05-28 23:20] VITALS: BP 125/55
[2017-05-28 23:31] VITALS: BP 125/55
[2017-05-28 23:35] VITALS: BP 104/50
[2017-05-28 23:50] VITALS: BP 100/51
[2017-05-29] VITALS (13 sets, daily range): BP systolic 92–143; BP diastolic 46–65
[2017-05-29 00:09] LABS: URINE BILIRUBIN - DIPSTICK NEGATIVE (NEG); URINE BLOOD 1+ (NEG)
--- NOTE | 2017-05-29 07:21 | POST-OP PROGRESS NOTE ---
Post Op Subjective Data Patient is post-op day 1 Subjective data: Feels "pretty good" Post op objective data Vitals,I&O,and Labs: Vital signs, intake and output,and available lab data for the last 24 hours is as noted below. Vital Signs Date Time Temp Pulse Resp B/P Pulse O2 O2 Flow FiO2 Ox Delivery Rate 05/29 0605 97.8 61 18 104/51 94 05/29 0505 98.3 67 16 101/48 97 05/29 0405 97.4 57 16 98/58 96 05/29 0305 97.0 62 16 109/51 95 05/29 0205 97.6 60 16 102/47 96 05/29 0135 97.6 62 18 108/49 96 05/29 0105 98.0 64 16 95/57 98 05/29 0035 98.6 63 16 106/49 98 05/29 0005 97.6 64 18 98/51 94 05/28 2350 98.3 63 16 100/51 96 05/28 2335 98.3 66 18 104/50 96 05/28 2331 98.5 66 16 125/55 94 ROOM AIR 05/28 2320 98.5 64 16 125/55 93 05/28 2320 98.5 64 16 125/55 93 ROOM AIR 05/28 2310 98.2 66 16 107/53 93 ROOM AIR 05/28 2300 67 16 98/51 93 ROOM AIR 05/28 2257 98.2 71 16 101/52 05/28 2250 98.2 71 16 101/52 95 ROOM AIR 05/28 2236 86 18 128/66 95 05/28 2110 99.2 86 20 128/66 95 05/28 1818 98.6 75 20 117/61 95 05/28 1500 05/28 2300 05/29 0700 Intake Total 25 697 Output Total 0 925 Balance 25 -228 Intake, IV 25 677 Intake, Oral 0 20 Intake, Tube 0 Irrigant Output, 0 Emesis Output, 0 Estimated Blood Loss Output, Other 0 Output, Urine 925 Patient 72.576 kg 77.338 kg Weight Laboratory Tests Test Result Date Time Chemistry Sodium (mmoL/L) 135 05/28 1821 Potassium (mmoL/L) 3.8 05/28 1821 Chloride (mmoL/L) 99 05/28 182 Carbon Dioxide (mmoL/L) 27 05/28 1821 BUN (mg/dL) 18 05/28 1821 Creatinine (mg/dL) 0.9 05/28 1821 Estimated Creat Clear (ML/MIN) 74 05/28 1821 Estimated GFR (MDRD) (ML/MIN) 82 05/28 1821 Glucose (mg/dL) 104 05/28 1821 Calcium (mg/dL) 8.9 05/28 1821 Total Bilirubin (mg/dL) 2.0 05/28 1821 AST (U/L) 22 05/28 1821 ALT (U/L) 30 05/28 1821 Alkaline Phosphatase (U/L) 89 05/28 1821 Creatine Kinase (U/L) 121 05/28 1821 CK-MB (CK-2) Rel Index (U/L) 1.8 05/28 1821 CK and CKMB Interp (ng/mL) 2.2 05/28 1821 Troponin I (ng/mL) 0.04 05/28 1821 Total Protein (gm/dL) 6.5 05/28 1821 Albumin (gm/dL) 3.5 05/28 1821 Globulin (gm/dL) 3.0 05/28 1821 Albumin/Globulin Ratio 1.2 05/28 1821 Lipase (U/L) 78 05/28 1821 Hematology WBC (K/MM3) 13.4 05/28 1821 RBC (M/mm3) 3.97 05/28 1821 Hgb (g/dL) 13.7 05/28 1821 Hct (%) 40.1 05/28 1821 MCV (fl) 101.1 05/28 1821 RDW (%) 14.5 05/28 1821 Plt Count (K/mm3) 168 05/28 1821 MPV (fl) 7.7 05/28 1821 Gran % (%) 92.2 05/28 1821 Gran # (K/mm3) 12.4 05/28 1821 Total Counted (#CELLS) 100 05/28 1821 Lymphocytes % (%) 3.8 05/28 1821 Monocytes % (%) 3.6 05/28 1821 Eosinophils % (%) 0.3 05/28 1821 Basophils % (%) 0.1 05/28 1821 Neutrophils (%) 88 05/28 1821 Band Neutrophils (%) 2 05/28 1821 Lymphocytes (Manual) (%) 2 05/28 1821 Lymphocytes # (K/mm3) 0.5 05/28 1821 Monocytes (Manual) (%) 8 05/28 1821 Monocytes # (K/mm3) 0.5 05/28 1821 Eosinophils # (K/mm3) 0.0 05/28 1821 Basophils # (K/MM3) 0.0 05/28 1821 Platelet Estimate NORMAL 05/28 1821 PUBS MCHC (g/dl) 34.1 05/28 1821 Immunology MCH (pg) 34.5 05/28 1821 Urines Urine Color YELLOW 05/28 2125 Urine Appearance CLEAR 05/28 2125 Urine pH 6.5 05/28 2125 Ur Specific [place] <= 1.005 05/28 2125 Urine Protein (mg/dL) NEGATIVE 05/28 2125 Urine Ketones (mg/dL) 1+ 05/28 2125 Urine Blood 1+ 05/28 2125 Urine Nitrate NEGATIVE 05/28 2125 Urine Bilirubin NEGATIVE 05/28 2125 Urine Urobilinogen (E.U./dL) 0.2 05/28 2125 Ur Leukocyte Esterase NEGATIVE 05/28 2125 Urine RBC (rbc/hpf) 5-10 05/28 2125 Urine WBC (wbc/hpf) OCC 05/28 1915 Ur Squamous Epith Cells (#/hpf) 3-5 05/28 1915 Urine Bacteria OCC 05/28 2125 Urine Mucus OCC 05/28 2125 Urine Glucose NEGATIVE 05/28 2125 Physical Exam VS/I&O Vital Signs Date Time Temp Pulse Resp B/P Pulse O2 O2 Flow FiO2 Ox Delivery Rate 05/29 0605 97.8 61 18 104/51 94 05/29 0505 98.3 67 16 101/48 97 05/29 0405 97.4 57 16 98/58 96 05/29 0305 97.0 62 16 109/51 95 05/29 0205 97.6 60 16 102/47 96 05/29 0135 97.6 62 18 108/49 96 05/29 0105 98.0 64 16 95/57 98 05/29 0035 98.6 63 16 106/49 98 05/29 0005 97.6 64 18 98/51 94 05/28 2350 98.3 63 16 100/51 96 05/28 2335 98.3 66 18 104/50 96 05/28 2331 98.5 66 16 125/55 94 ROOM AIR 05/28 2320 98.5 64 16 125/55 93 05/28 2320 98.5 64 16 125/55 93 ROOM AIR 05/28 2310 98.2 66 16 107/53 93 ROOM AIR 05/28 2300 67 16 98/51 93 ROOM AIR 05/28 2257 98.2 71 16 101/52 05/28 2250 98.2 71 16 101/52 95 ROOM AIR 05/28 2236 86 18 128/66 95 05/28 2110 99.2 86 20 128/66 95 05/28 1818 98.6 75 20 117/61 95 I&O 05/29 0700 Intake Total 722 Output Total 925 Balance -203 Intake, IV 702 Intake, Oral 20 Intake, Tube 0 Irrigant Output, 0 Emesis Output, 0 Estimated Blood Loss Output, Other 0 Output, Urine 925 Patient 77.338 kg Weight Exam General appearance no acute distress Respiratory no distress Cardiovascular regular rate and rhythm Abdomen soft (dressing dry. no cellulitis.) Post op patient plan Diagnoses: Necrotic/perforated appendicitis Plan: Advance diet, Ambulate, Antibiotics, d/c berg This inpt stay is expected to cross 2 MNs from start of care Yes Antibiotic Stewardship (2) Current Culture Results Microbiology 05/28 1915 URINE CC: Urine Culture - RES Infxn that will respond? Yes Right drug,dose,and route? Yes More targeted antbx? No How long atbx needed? 10 at 0720
[2017-05-29] MEDS ORDERED: NATURE'S BLEND F1 MG PO (07:22)
--- NOTE | 2017-05-29 07:22 | PHARMACY CLINIC NOTE ---
Patient Demographics Patient Demographics Admission date: 05/28/17 Date: 05/29/17 Time: 07 Allergies Coded Allergies: No Known Allergies (05/28/17) HEIGHT- FT: 5 IN: 9.00 K.338 VTE General Information Labs: Laboratory Tests 05/28 1821 Hematology Hgb (14.1 - 18.0 g/dL) 13.7 L Hct (42.0 - 52.0 %) 40.1 L Plt Count (142 - 424 K/mm3) 168 Disclaimer The following section includes nursing documentation that has been pulled in for pharmacy review. Patient's VTE score: 3 Patient's VTE Risk: LOW RISK Clinical trial participant? No VTE prophylaxis [id number] VTE prophylaxis ordered? Yes Type of prophylaxis/treatment: ARTUR at 0721
[2017-05-29 07:30] LABS: LYMPH # 0.4 K/mm3 (0.7-4.5); LYMPH % 2.8 % (10-50)
[2017-05-29 07:49] LABS: HEMOGLOBIN 11.8 g/dL (14.1-18.0)
--- NOTE | 2017-05-29 08:04 | RADIOLOGY REPORT PS360 ---
CT ABD PELVIS W/ CONTRAST CLINICAL INDICATION: Right-sided abdominal pain, elevated bilirubin RT RIB PAIN, ELEVATED BILI, EVAL LIVER ORDERING PHYSICIAN: Opal Rome MD PATIENT AGE: 76 years COMPARISON: 07/20/2015 TECHNIQUE: Axial images obtained with sagittal and coronal reformats. PROCEDURE: Oral Contrast: None IV Contrast: 75 mL's of Isovue-370 . FINDINGS: There has been prior median sternotomy. Extensive coronary artery calcifications are present. There is mild cardiomegaly atelectatic changes are present in the lung bases. Hypoattenuation is present in the region of the falciform ligament of the liver consistent with focal fatty infiltration. A gallstone is present. No biliary dilatation apparent. The spleen, adrenal glands, and pancreas are unremarkable. There is a 3 cm right renal cyst. No hydronephrosis. Nonobstructing calculus is present in the upper pole of left kidney 2 mm. There are fluid-filled loops of small and large bowel consistent with ileus. The appendix is markedly thickened measuring up to 2 cm with ill definition of the appendiceal wall and stranding of the periappendiceal fat along with multiple appendicoliths consistent with acute appendicitis. There are secondary inflammatory loops of small and large bowel adjacent to the of the sinus. No obvious abscess or free air. Urinary bladder wall is slightly thickened and could be due to infection/cystitis or nondistention Prostate seed implants are noted. There is degenerative disc disease in the lumbar spine with scoliosis convex right. Moderate contour deformity involves anterior aspect of the right fifth rib and may be related to nondisplaced fracture IMPRESSION: 1. Acute appendicitis with thickened appendix, multiple appendicoliths, and stranding of the periappendiceal fat adjacent inflamed loops of small and large bowel with suspected ileus 2. Cholelithiasis 3. Possible right fifth rib fracture 4. Other nonacute findings as described above
[2017-05-30] VITALS (7 sets, daily range): BP systolic 140–153; BP diastolic 72–80
[2017-05-30 05:44] LABS: HEMOGLOBIN 11.9 g/dL (14.1-18.0); LYMPH # 0.5 K/mm3 (0.7-4.5); LYMPH % 4.7 % (10-50)
[2017-05-30 06:18] LABS: NEUTROPHILS 98 % (42-76)
--- NOTE | 2017-05-30 08:33 | POST-OP PROGRESS NOTE ---
Post Op Subjective Data Patient is post-op day 2 Subjective data: Feels "bloated and backed up". He has not passed flatus since his operation and he has not had a BM "for quite a few days". Post op objective data Vitals,I&O,and Labs: Vital signs, intake and output,and available lab data for the last 24 hours is as noted below. Vital Signs Date Time Temp Pulse Resp B/P Pulse O2 O2 Flow FiO2 Ox Delivery Rate 05/30 0826 98.2 62 18 145/72 94 05/30 0800 98.2 62 18 145/72 94 ROOM AIR 05/30 0430 98.1 60 16 140/80 93 ROOM AIR 05/30 0017 98.2 68 18 148/73 92 ROOM AIR 05/29 2248 18 05/29 1954 97.7 63 18 138/65 97 ROOM AIR 05/29 1925 97.7 63 18 138/65 97 05/29 1553 98.5 67 18 143/60 96 ROOM AIR 05/29 0854 97.4 69 20 92/46 94 05/29 1500 05/29 2300 05/30 0700 Intake Total 077 558 8435 Output Total 600 Balance 80 240 3117 Intake, IV 3117 Intake, Oral 680 240 Output, Urine 600 Laboratory Tests Test Result Date Time Chemistry Sodium (mmoL/L) 136 05/29 0615 Potassium (mmoL/L) 3.9 05/29 06 Chloride (mmoL/L) 102 05/29 06 Carbon Dioxide (mmoL/L) 28 05/29 06 BUN (mg/dL) 17 05/29 615 Creatinine (mg/dL) 0.9 05/29 615 Estimated Creat Clear (ML/MIN) 79 05/29 06 Estimated GFR (MDRD) (ML/MIN) 82 05/29 06 Glucose (mg/dL) 120 05/29 06 Calcium (mg/dL) 8.6 05/29 615 Total Bilirubin (mg/dL) 1.4 05/29 615 AST (U/L) 16 05/29 0615 ALT (U/L) 21 05/29 06 Alkaline Phosphatase (U/L) 77 05/29 0615 Creatine Kinase (U/L) 121 05/28 182 CK-MB (CK-2) Rel Index (U/L) 1.8 11/1820 CK and CKMB Interp (ng/mL) 2.2 05/28 1821 Troponin I (ng/mL) 0.04 05/28 1821 Total Protein (gm/dL) 5.6 05/29 615 Albumin (gm/dL) 2.7 05/29 615 Globulin (gm/dL) 2.9 05/29 615 Albumin/Globulin Ratio 0.9 05/29 615 Lipase (U/L) 78 05/28 1821 Hematology WBC (K/MM3) 10.3 05/30 520 RBC (M/mm3) 3.50 05/30 520 Hgb (g/dL) 11.9 05/30 520 Hct (%) 35.7 05/30 520 MCV (fl) 101.8 05/30 520 RDW (%) 14.3 05/30 520 Plt Count (K/mm3) 162 05/30 520 MPV (fl) 8.0 05/30 520 Gran % (%) 91.7 05/30 520 Gran # (K/mm3) 9.4 05/30 520 Total Counted (#CELLS) 100 05/30 520 Lymphocytes % (%) 4.7 05/30 520 Monocytes % (%) 3.3 05/30 520 Eosinophils % (%) 0.3 05/30 520 Basophils % (%) 0.0 05/30 520 Neutrophils (%) 98 05/30 520 Band Neutrophils (%) 2 05/28 1821 Lymphocytes (Manual) (%) 1 05/30 520 Lymphocytes # (K/mm3) 0.5 05/30 520 Monocytes (Manual) (%) 1 05/30 520 Monocytes # (K/mm3) 0.3 05/30 520 Eosinophils # (K/mm3) 0.0 05/30 520 Basophils # (K/MM3) 0.0 05/30 520 Platelet Estimate NORMAL 05/30 520 Anisocytosis 1+ 05/30 520 PUBS MCHC (g/dl) 33.3 05/30 520 Immunology MCH (pg) 33.9 05/30 520 Urines Urine Color YELLOW 05/28 2125 Urine Appearance CLEAR 05/28 2125 Urine pH 6.5 05/28 2125 Ur Specific [place] <= 1.005 05/28 2125 Urine Protein (mg/dL) NEGATIVE 05/28 2125 Urine Ketones (mg/dL) 1+ 05/28 2125 Urine Blood 1+ 05/28 2125 Urine Nitrate NEGATIVE 05/28 2125 Urine Bilirubin NEGATIVE 05/28 2125 Urine Urobilinogen (E.U./dL) 0.2 05/28 2125 Ur Leukocyte Esterase NEGATIVE 05/28 2125 Urine RBC (rbc/hpf) 5-10 05/28 2125 Urine WBC (wbc/hpf) OCC 05/28 1915 Ur Squamous Epith Cells (#/hpf) 3-5 05/28 1915 Urine Bacteria OCC 05/28 2125 Urine Mucus OCC 05/28 2125 Urine Glucose NEGATIVE 05/28 2125 Physical Exam VS/I&O Vital Signs Date Time Temp Pulse Resp B/P Pulse O2 O2 Flow FiO2 Ox Delivery Rate 05/30 0826 98.2 62 18 145/72 94 05/30 0800 98.2 62 18 145/72 94 ROOM AIR 05/30 0430 98.1 60 16 140/80 93 ROOM AIR 05/30 0017 98.2 68 18 148/73 92 ROOM AIR 05/29 2248 18 05/29 1954 97.7 63 18 138/65 97 ROOM AIR 05/29 1925 97.7 63 18 138/65 97 05/29 1553 98.5 67 18 143/60 96 ROOM AIR 05/29 0854 97.4 69 20 92/46 94 I&O 05/30 0700 Intake Total 4037 Output Total 600 Balance 3437 Intake, IV 3117 Intake, Oral 920 Output, Urine 600 Exam General appearance no acute distress Respiratory areating well Cardiovascular regular rate and rhythm Abdomen soft, distended ((somewhat)) Post op patient plan Diagnoses: post-op ileus necrotic/perforated appendicitis Plan: Ambulate, Antibiotics, DVT prophylaxis, bowel regimen This inpt stay is expected to cross 2 MNs from start of care Yes at 0833
[2017-05-31] VITALS (7 sets, daily range): BP systolic 135–153; BP diastolic 67–77
[2017-05-31 06:40] LABS: LYMPH # 0.4 K/mm3 (0.7-4.5); LYMPH % 4.4 % (10-50)
--- NOTE | 2017-05-31 07:03 | POST-OP PROGRESS NOTE ---
See Addendum Post Op Subjective Data Patient is post-op day 3 Subjective data: Still feels "a bit bloated". Still with some "burning pain". Some nausea with small amount of "green" emesis 2. Post op objective data Vitals,I&O,and Labs: Vital signs, intake and output,and available lab data for the last 24 hours is as noted below. Vital Signs Date Time Temp Pulse Resp B/P Pulse O2 O2 Flow FiO2 Ox Delivery Rate 05/31 0414 98.3 63 18 147/67 93 ROOM AIR 05/31 0106 18 05/31 0023 97.7 59 18 142/71 95 ROOM AIR 05/30 2317 18 05/30 1954 98.2 63 18 142/78 93 ROOM AIR 05/30 1950 98.2 63 18 142/78 05/30 1704 16 05/30 1546 97.6 58 18 153/73 96 ROOM AIR 05/30 1108 16 05/30 0826 98.2 62 18 145/72 94 05/30 0800 98.2 62 18 145/72 94 ROOM AIR 05/30 1500 05/30 2300 05/31 0700 Intake Total 0 1570 1149 Output Total Balance 0 1570 1149 Intake, IV 1320 1149 Intake, Oral 0 250 Output, Stool Laboratory Tests Test Result Date Time Chemistry Sodium (mmoL/L) 136 05/29 06 Potassium (mmoL/L) 3.9 05/29 06 Chloride (mmoL/L) 102 05/29 06 Carbon Dioxide (mmoL/L) 28 05/29 615 BUN (mg/dL) 17 05/29 06 Creatinine (mg/dL) 0.9 05/29 615 Estimated Creat Clear (ML/MIN) 79 05/29 06 Estimated GFR (MDRD) (ML/MIN) 82 05/29 06 Glucose (mg/dL) 120 05/29 06 Calcium (mg/dL) 8.6 05/29 615 Total Bilirubin (mg/dL) 1.4 05/29 615 AST (U/L) 16 05/29 0615 ALT (U/L) 21 05/29 06 Alkaline Phosphatase (U/L) 77 05/29 0615 Creatine Kinase (U/L) 121 05/28 1821 CK-MB (CK-2) Rel Index (U/L) 1.8 05/28 1821 CK and CKMB Interp (ng/mL) 2.2 05/28 1821 Troponin I (ng/mL) 0.04 05/28 1821 Total Protein (gm/dL) 5.6 05/29 615 Albumin (gm/dL) 2.7 05/29 615 Globulin (gm/dL) 2.9 05/29 615 Albumin/Globulin Ratio 0.9 05/29 615 Lipase (U/L) 78 05/28 1821 Hematology WBC (K/MM3) 10.3 05/30 520 RBC (M/mm3) 3.50 05/30 520 Hgb (g/dL) 11.9 05/30 520 Hct (%) 35.7 05/30 520 MCV (fl) 101.8 05/30 520 RDW (%) 14.3 05/30 520 Plt Count (K/mm3) 162 05/30 520 MPV (fl) 8.0 05/30 520 Gran % (%) 91.7 05/30 520 Gran # (K/mm3) 9.4 05/30 520 Total Counted (#CELLS) 100 05/30 520 Lymphocytes % (%) 4.7 05/30 520 Monocytes % (%) 3.3 05/30 520 Eosinophils % (%) 0.3 05/30 520 Basophils % (%) 0.0 05/30 520 Neutrophils (%) 98 05/30 520 Band Neutrophils (%) 2 05/28 1821 Lymphocytes (Manual) (%) 1 05/30 520 Lymphocytes # (K/mm3) 0.5 05/30 520 Monocytes (Manual) (%) 1 05/30 520 Monocytes # (K/mm3) 0.3 05/30 520 Eosinophils # (K/mm3) 0.0 05/30 520 Basophils # (K/MM3) 0.0 05/30 520 Platelet Estimate NORMAL 05/30 520 Anisocytosis 1+ 05/30 520 PUBS MCHC (g/dl) 33.3 05/30 520 Immunology MCH (pg) 33.9 05/30 520 Urines Urine Color YELLOW 05/28 2125 Urine Appearance CLEAR 05/28 2125 Urine pH 6.5 05/28 2125 Ur Specific [place] <= 1.005 05/28 2125 Urine Protein (mg/dL) NEGATIVE 05/28 2125 Urine Ketones (mg/dL) 1+ 05/28 2125 Urine Blood 1+ 05/28 2125 Urine Nitrate NEGATIVE 05/28 2125 Urine Bilirubin NEGATIVE 05/28 2125 Urine Urobilinogen (E.U./dL) 0.2 05/28 2125 Ur Leukocyte Esterase NEGATIVE 05/28 2125 Urine RBC (rbc/hpf) 5-10 05/28 2125 Urine WBC (wbc/hpf) OCC 05/28 1915 Ur Squamous Epith Cells (#/hpf) 3-5 05/28 1915 Urine Bacteria OCC 05/28 2125 Urine Mucus OCC 05/28 2125 Urine Glucose NEGATIVE 05/28 2125 Physical Exam VS/I&O Vital Signs Date Time Temp Pulse Resp B/P Pulse O2 O2 Flow FiO2 Ox Delivery Rate 05/31 0414 98.3 63 18 147/67 93 ROOM AIR 05/31 0106 18 05/31 0023 97.7 59 18 142/71 95 ROOM AIR 05/30 2317 18 05/30 1954 98.2 63 18 142/78 93 ROOM AIR 05/30 1950 98.2 63 18 142/78 05/30 1704 16 05/30 1546 97.6 58 18 153/73 96 ROOM AIR 05/30 1108 16 05/30 0826 98.2 62 18 145/72 94 05/30 0800 98.2 62 18 145/72 94 ROOM AIR I&O 05/31 0700 Intake Total 2719 Output Total Balance 2719 Intake, IV 2469 Intake, Oral 250 Output, Stool Exam General appearance no acute distress Respiratory areating well Cardiovascular regular rate and rhythm Abdomen soft (mild distention. inc. c/d/i) Post op patient plan Diagnoses: Necrotic/perforated appendicitis Postoperative ileus Plan: Ambulate, follow-up morning labs, bowel regimen, ? flat and upright films This inpt stay is expected to cross 2 MNs from start of care Yes at 0703
[2017-05-31 07:30] LABS: HEMOGLOBIN 13.3 g/dL (14.1-18.0)
[2017-05-31 09:00] LABS: NEUTROPHILS 85 % (42-76)
[2017-06-01 03:58] VITALS: BP 137/55
[2017-06-01 08:11] VITALS: BP 132/81
[2017-06-01 08:26] VITALS: BP 132/81
--- NOTE | 2017-06-01 09:16 | SURGEON PROGRESS NOTE ---
Subjective data Subjective data: HORTENSIA VILLATORO is a 76 M .Patient denies complaint of nausea and vomitting.He reports his last pain level as 0 on a 0-10 pain scale. Patient feels better, a bit "hungry". Tolerating clear liquids. Very large amount of liquid diarrhea stool. Assessment findings Assessment Exam General appearance: normal appearance, alert ABD: soft, no tenderness Patient plan Plan: Antibiotics Additional data: Continue IV antibiotics through tomorrow for perforated appendicitis. Advance diet. at 0915
[2017-06-01 16:00] VITALS: BP 153/73
[2017-06-01 20:02] VITALS: BP 150/71
[2017-06-01 20:05] VITALS: BP 150/71
[2017-06-02 03:50] VITALS: BP 150/77
--- NOTE | 2017-06-02 08:03 | SURGEON PROGRESS NOTE ---
Subjective data Subjective data: HORTENSIA VILLATORO is a 76 M .Patient denies complaint of nausea and vomitting.He reports his last pain level as 0 on a 0-10 pain scale. Doing well. No complaints. Tolerating bland diet. Some loose stools. Assessment findings Assessment Exam General appearance: normal appearance ABD: soft Patient plan Plan: DC at 0802
[2017-06-02] MEDS ORDERED: HYDROCODONE/APA1 TA8 PO (08:06)
[2017-06-02] MEDS ORDERED: AUGMENTIN 875-1 EACH PO (08:07)
[2017-06-02 08:10] VITALS: BP 165/75
[2017-06-02 09:43] VITALS: BP 165/75
--- NOTE | 2017-06-02 17:27 | Discharge Summary Report ---
General Admit date: 05/28/17 Discharge date: 06/02/17 Admission Dx: Necrotic / Perforated Appendicitis Discharge Dx: Same Hospital course: The patient was admitted to the surgical service after undergoing laparoscopic appendectomy for perforated / necrotic appendicitis. Please see history and physical, as well as operative report for detail. Postoperatively, he progressed fairly well. He was maintained on Zosyn and remained afebrile with stable and normal vital signs. He did have a fairly significant postoperative ileus that slowly improved between POD#3 and POD#5. His diet was slowly advanced and he was deemed appropriate for discharge on POD#5. At the time of discharge, he was afebrile with stable and normal vital signs. He was prescribed 5 additional days of antibiotics in the form of Augmentin. Condition at discharge: improved Problem List Medical Problems Appendicitis, acute Ileus Rib pain on right side Total bilirubin, elevated Allergies Coded Allergies: No Known Allergies (05/28/17) Med Rec DC summary Medications Reported Medications Folic Acid 1 MG PO DAILY #60 Methotrexate 2.5 MG PO WEEKLY #40 ASPIRIN (Aspirin) 81 MG PO DAILY Naproxen Sodium (Aleve Arthritis) 220 MG PO DAILY TAMSULOSIN HCL (Flomax 0.4MG) 0.4 MG PO QHS Txs and Procedures Treatments and Procedures: Laparoscopic Appendectomy Labs: Laboratory Tests 05/31/17 0621: Sodium 140, Potassium 4.0, Chloride 101, Carbon Dioxide 31, BUN 17, Creatinine 0.9, Estimated Creat Clear 79, Estimated GFR (MDRD) 82, Glucose 113 H, Calcium 9.0, Total Bilirubin 0.7, AST 39 H, ALT 37, Alkaline Phosphatase 73, Total Protein 6.4, Albumin 2.8 L, Globulin 3.6 H, Albumin/Globulin Ratio 0.8 L, WBC 9.7, RBC 3.85 L, Hgb 13.3 L, Hct 39.3 L, MCV 102.1 H, RDW 14.1, Plt Count 197, MPV 7.7, Gran % 92.7 H, Gran # 9.0 H, Total Counted 100, Lymphocytes % 4.4 L, Monocytes % 1.5 L, Eosinophils % 1.3, Basophils % 0.1, Neutrophils 85 H, Lymphocytes (Manual) 12, Lymphocytes # 0.4 L, Monocytes (Manual) 2, Monocytes # 0.1, Eosinophils # 0.1, Eosinophils # (Manual) 1, Basophils # 0.0, Platelet Estimate NORMAL, PUBS MCHC 34.0, MCH 34.7 H at 0181
== END 2017-06-02 09:50 | disposition home or self-care (01) | DRG 339 ==
LOC: ER 18:12 → SDC 21:20 → 2ND 21:50
PROVIDERS: Emergency Medicine; Surgery
PROC: 0DTJ4ZZ Resection of Appendix, Percutaneous Endoscopic Approach (ICD-10-PCS; principal; 2017-05-30)
DX: K35.3 Acute appendicitis with localized peritonitis (principal); K56.7 Ileus, unspecified; I25.10 Atherosclerotic heart disease of native coronary artery without angina pectoris; Z95.1 Presence of aortocoronary bypass graft
CPT/HCPCS: G0378; J0131; J2405; J2543; J2710; Q9967